=== PATIENT | male | born 1955 | race Caucasian/White ===

== ENCOUNTER 2021-09-06 15:44 | Emergency (ER) | payer OTHER ==
[2021-09-06] MEDS ORDERED: Rocephin 500 MG INJ IM ONE (16:38)
--- NOTE | 2021-09-06 16:40 | ERPHSYRPT ---
- History of Present Illness Time Seen by Provider: 09/06/21 16:15 Source: patient Exam Limitations: no limitations Patient Subjective Stated Complaint: LEFT FOOT/TOE PAIN Triage Nursing Assessment: PT AMBULATED TO ROOM, ALERT AND ORIENTED X 3, PT HAS A SMALL SORE WHICH HE SCRATCHED A COUPLE WEEKS AGO AND NOW IT IS CAUSING PAIN, SOME REDNESS NOTED TO FOOT, RED AND HOT TO THE TOUCH. Physician History: Patient is a 66-year-old male [place] normally receives his care at the [facility] presents to our ED for evaluation of a foot infection. Patient states his left third digit had a sore on the dorsal aspect which he picked. Patient states over the course of 2 weeks he has noticed swelling and redness and now he production at this area. Minimal pain. No fever. The area of redness is just around the base of the toe. There is no trauma. Patient has no bony tenderness. Patient is ambulatory with a normal gait. Patient voices no other complaints or concerns at this time. Timing/Duration: week(s) (2 weeks ago) Severity: moderate Modifying Factors: Improves With: nothing Associated Symptoms: denies symptoms Allergies/Adverse Reactions: No Known Drug Allergies Allergy (Unverified 09/06/21 16:13) Home Medications: Gabapentin 100 mg [Neurontin 100 MG] 100 mg PO HS 09/06/21 [History] Hx Tetanus, Diphtheria Vaccination/Date Given: Yes Hx Influenza Vaccination/Date Given: Yes Hx Pneumococcal Vaccination/Date Given: Yes Immunizations Up to Date: Yes Travel Risk - International Travel Have you traveled outside of the country in past 3 weeks: No - Coronavirus Screening Are you exhibiting any of the following symptoms?: No Close contact with a COVID-19 positive Pt in past 14-21 Days: No - Vaccine Status Have you recieved a Covid-19 vaccination: Yes [employer]: Unknown - Vaccination Dates Dates if Unknown: UNKNOWN - Review of Systems Constitutional: No Symptoms, No Fever, No Chills Eyes: No Symptoms Ears, Nose, & Throat: No Symptoms Respiratory: No Symptoms, No Cough, No Dyspnea Cardiac: No Symptoms, No Chest Pain, No Edema, No Syncope Abdominal/Gastrointestinal: No Symptoms, No Abdominal Pain, No Nausea, No Vomiting, No Diarrhea Genitourinary Symptoms: No Symptoms, No Dysuria Musculoskeletal: No Symptoms, No Back Pain, No Neck Pain Skin: No Symptoms, No Rash Neurological: No Symptoms, No Dizziness, No Focal Weakness, No Sensory Changes Psychological: No Symptoms Endocrine: No Symptoms Hematologic/Lymphatic: No Symptoms Immunological/Allergic: No Symptoms All Other Systems: Reviewed and Negative - Past Medical History Neurological History: Seizures ENT History: No Pertinent History Cardiac History: Hypertension Respiratory History: No Pertinent History Endocrine Medical History: No Pertinent History Musculoskeletal History: Fractures GI Medical History: Cirrhosis History: No Pertinent History Psycho-Social History: Depression Male Reproductive Disorders: No Pertinent History - Past Surgical History Past Surgical History: No - Social History Smoking Status: Current every day smoker How long have you smoked: 50 YEARS Exposure to second hand smoke: No Drug Use: none - Nursing Vital Signs Nursing Vital Signs: Initial Vital Signs Temperature 98.9 F 09/06/21 16:03 Pulse Rate 94 H 09/06/21 16:03 Respiratory Rate 20 09/06/21 16:03 Blood Pressure 165/106 09/06/21 16:03 O2 Sat by Pulse Oximetry 95 09/06/21 16:03 Pain Scale Pain Intensity 6 - Physical Exam General Appearance: no apparent distress, alert Eye Exam: PERRL/EOMI, eyes nml inspection Ears, Nose, Throat Exam: normal ENT inspection, TMs normal, pharynx normal, moist mucous membranes Neck Exam: normal inspection, non-tender, supple, full range of motion Respiratory Exam: normal breath sounds, lungs clear, airway intact, No respiratory distress Cardiovascular Exam: regular rate/rhythm, normal heart sounds, normal peripheral pulses Gastrointestinal/Abdomen Exam: soft, normal bowel sounds, No tenderness, No mass Back Exam: normal inspection, normal range of motion, No CVA tenderness, No vertebral tenderness Extremity Exam: normal inspection, normal range of motion, pelvis stable, tenderness (Slight tenderness to the area of involvement. No crepitation or obvious swelling.), other (Third digit left foot has a area of cellulitis measuring 1 cm. No lymphangitis. No lymphadenopathy. No fever. No open or draining lesions extremities neurovascular intact distally. Compartments are soft. Cap refill less than 2 seconds.) Neurologic Exam: alert, oriented x 3, cooperative, normal mood/affect, nml cerebellar function, nml station & gait, sensation nml, No motor deficits Skin Exam: normal color, warm, dry, No rash Lymphatic Exam: No adenopathy SpO2 Interpretation: normal SpO2: 93 O2 Delivery: Room Air - Course Nursing assessment & vital signs reviewed: Yes Ordered Tests: Medication Summary Discontinued Medications Generic Name Dose Route Start Last Admin Trade Name Mino PRN Reason Stop Dose Admin Ceftriaxone Sodium 1,000 mg 09/06/21 16:38 Ceftriaxone Sodium 500 Mg Vial IM 09/06/21 16:39 STAT ONE - Progress Progress: improved Progress Note: 66-year-old male nondiabetic with a new onset cellulitis at the dorsal aspect of the base of the left third digit. The cellulitis area was demarcated using a surgical marker. Patient received a IM dose of Rocephin in our ED. A prescription for Bactrim was forwarded to patient's pharmacy. 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 Patient agrees to follow-up with his primary care doctor within 48 hours for evaluation. Patient voiced no other complaints concerns at this time. Portions of this note were created with voice recognition technology. There may be grammatical, spelling, punctuation or sound alike errors 09/06/21 16:46 Counseled pt/family regarding: diagnosis, need for follow-up - Departure Departure Disposition: Home Clinical Impression: Cellulitis of foot Condition: Stable Critical Care Time: No Additional Instructions: Discharge/Care Plan CÉSAR BROWN was seen on 09/06/21 in the Emergency Room. The patient was counseled regarding Diagnosis,Lab results, Imaging studies, need for follow up and when to return to the Emergency Room. Prescriptions given: Discharge Note I have spoken with the patient and/or caregivers. I have explained the patient's condition, diagnosis and treatment plan based on the information available to me at this time. I have answered the patient's and/or caregiver's questions and addressed any concerns. The patient and/or caregivers have as good understanding of the patient's diagnosis, condition and treatment plan as can be expected at this point. The vital signs have been stable. The patient's condition is stable and appropriate for discharge from the emergency department. The patient will pursue further outpatient evaluation with the primary care physician or other designated or consulting physician as outlined in the discharge instructions. The patient and/or caregivers are agreeable to this plan of care and follow-up instructions have been explained in detail. The patient and/or caregivers have received these instruction. The patient/and or caregivers are aware that any significant change in condition or worsening of symptoms should prompt an immediate return to this or the closest emergency department or call 911. Prescriptions: Smz/Tmp Ds Tablet [Bactrim Ds Tablet] 1 udtab PO BID #14 tablet
[2021-09-06] MEDS ORDERED: Rocephin 1000 MG INJ ONE (16:41)
[2021-09-06] MEDS ORDERED: XYLOCAINE 1% HCL 20 ML MDV ONE (16:42)
[2021-09-06] MEDS ORDERED: Rocephin 1000 MG INJ IM ONE (17:00)
[2021-09-06 17:08] VITALS: BP 150/93; PULSE 67; O2SAT 92
== END 2021-09-06 17:05 | disposition home or self-care (01) ==
LOC: ED 15:44
DX: L03.032 Cellulitis of left toe (principal); I10 Essential (primary) hypertension; Z72.0 Tobacco use
CPT/HCPCS: 96372; 99283; J0696

== ENCOUNTER 2023-01-14 08:22 | Day surgery (SDC) | payer OTHER ==
--- NOTE | 2023-01-14 06:56 | HP ---
DATE OF SURGERY: 01/14/2023 HISTORY OF PRESENT ILLNESS: The patient is a 67-year-old history of cirrhosis followed at . He had prior dilatation and now more dysphasia mid to lower esophagus. He is in need of EGD possible dilatation. PAST MEDICAL HISTORY: Asthma, cirrhosis, depression, hyperlipidemia, hypertension, seizure disorder. PAST SURGICAL HISTORY: He denied prior surgery. He had endoscopy and dilatation in the past. MEDICATIONS: Atorvastatin, gabapentin. ALLERGIES: NKDA. FAMILY HISTORY: Negative in regards to this problem. SOCIAL HISTORY: Smoker. No current alcohol abuse. REVIEW OF SYSTEMS: Fourteen systems reviewed. No chest pain or palpitations. Other systems negative or noncontributory as above and per preadmission questionnaire. PHYSICAL EXAMINATION: Height 5'3". BMI 21. GENERAL: No acute distress. HEENT: Sclerae trace icterus. EOMI. Oral mucous membranes moist. NECK: No JVD. CHEST: Equal excursion, nonlabored breathing. CVS: Regular rate and rhythm. ABDOMEN: Soft. EXTREMITIES: No significant edema. NEURO: Alert, oriented, moving extremities symmetrically. PSYCH: Appropriate mood and affect. SKIN: Dry. IMPRESSION: Dysphagia. He is in need of EGD possible dilatation. Risk of bleeding or infection, perforation, possible open procedure, possible need for transfer for stent placement, risk of bleeding or other procedure requiring transfer, possible no improvement in swallowing, risk of mortality but not limited to. Will proceed with EGD possible biopsy possible dilatation as an outpatient. Continue medication for cirrhosis, hypertension, lipids, multiple medical problems as mentioned above. Will proceed with EGD possible biopsy possible dilatation as an outpatient.
[2023-01-14] MEDS ORDERED: Lactated Ringers 1,000 ML IV ONE (08:57)
[2023-01-14] MEDS ORDERED: Lactated Ringers 1,000 ML IV SCH (09:00)
[2023-01-14 09:25] VITALS: RESP 16
[2023-01-14 09:29] LABS: Hematocrit 52.2 % (42-50); Hemoglobin 16.8 g/dL (12.5-18.0); Mean Cell Volume 91.3 fL (78-100); Mean Corpuscular Hemoglobin 29.4 pg (26-32); Mean Corpuscular Hgb Concent. 32.2 g/dL (32-36); Mean Platelet Volume 11.7 fL (7.5-11.0); Platelet Count 115 x10^3/uL (150-450); Red Blood Count 5.72 x10^6/uL (4.1-5.6); Red Cell Distribution Width 12.9 % (11.5-14.0); White Blood Count 6.2 x10^3/uL (4.0-10.5)
[2023-01-14 09:57] LABS: ALBUMIN 4.2 g/dL (3.5-5.0); ALKALINE PHOSPHATASE 77 U/L (38-126); BLOOD UREA NITROGEN 21 mg/dL (9-20); CHLORIDE 103 mmol/L (98-107); Calcium 9.3 mg/dL (8.4-10.2); Carbon Dioxide 21 mmol/L (22-30); Creatinine 1 0.95 mg/dL (0.66-1.25); EST GLOMERULAR FILTRATION RATE > 60.0 ML/MIN; Glucose 80 mg/dL (74-106); Potassium 4.4 mmol/L (3.5-5.1); SGOT/AST 38 U/L (17-59); SGPT/ALT 24 U/L (0-50); SODIUM 137 mmol/L (137-145); Total Protein 8.1 g/dL (6.3-8.2)
[2023-01-14] MEDS ORDERED: Versed 2 MG/2 ML Injection ONE (11:03)
[2023-01-14] MEDS ORDERED: Xylocaine-Mpf 2% 5 Ml Vial ONE (11:03)
[2023-01-14] MEDS ORDERED: DIPRIVAN 200 MG/20 ML IV ONE (11:03)
[2023-01-14 12:33] VITALS: BP 125/83; PULSE 97; TEMP 97.4; O2SAT 96
--- NOTE | 2023-01-15 09:22 | OP ---
SURGERY DATE/TIME: 01/14/2023 1111 PREOPERATIVE DIAGNOSES: 1) Need for screening colonoscopy. 2) History of dysphagia, need for upper endoscopy. POSTOPERATIVE DIAGNOSES: 1) Erosive duodenitis. 2) Erosive gastritis. 3) Distal esophageal narrowing and spasm without evidence of any mass. 4) Colon polyps. 5) Fair bowel prep. 6) ASA Class II. 7) Withdrawal of colonoscopy approximately 12 minutes. PROCEDURES: 1) EGD with cold biopsy of antrum for Helicobacter pylori. 2) Distal esophageal balloon dilatation (size 20 balloon). 3) Colonoscopy to cecum with hot biopsy of hyperplastic lesion x2. 4) Hot biopsy polypectomy early polyp versus hyperplastic lesion rectosigmoid x1. SURGEON: Dr. Geraldo Ramon. ANESTHESIA: MAC. ESTIMATED BLOOD LOSS: Minimal. INDICATIONS: As noted above. Risks and benefits explained in detail and not limited to and consent obtained. DESCRIPTION OF PROCEDURE AND FINDINGS: The patient is taken to the operating room. MAC anesthesia introduced. After official time out and no disagreement with planned procedure, bite block positioned. Video gastroscope easily passed down the proximal esophagus. In the distal esophagus, there is no evidence of mass but there was some tertiary contractions of esophagus as well as some esophageal spasm and narrowing where he was having his symptoms here. It was felt this warranted a trial of dilatation. The scope was passed back down through to the third portion of the duodenum. In the proximal duodenum in the second and third portion, he had some superficial erosions but he did have anything deep enough to call an ulcer at this point but he did have some erosive duodenitis. Back in the stomach, he had some erosive gastritis as well as petechial hemorrhages. No evidence of any large ulcer. Cold biopsy taken for Helicobacter pylori. On retroflex, he had slight weakness at the hiatus but no evidence of any large hiatal hernia. The scope is pulled back. Z-line is fairly crisp. No signs of any masses or erosions. Again, he did have a distal narrowing that warranted a trial of dilatation. Therefore the scope passed back down the stomach. A 20 balloon catheter carefully inserted to oropharynx to the stomach, pulled back up to the distal esophagus narrowed area and carefully inflated first stage for about 30 seconds, second stage 30 seconds, final stage approximately 2 minutes size 20 balloon dilator. The balloon was then released and withdrawn. The area was re-inspected and it was more widely patent. There were no signs of any full thickness issues or injury secondary to dilatation. The scope is withdrawn. Attention is then turned to colonoscopy. Digital rectal exam did not reveal any rectal masses. Video colonoscope inserted and passed up the slightly tortuous sigmoid, descending, transverse, ascending colon. With external pressure the scope passed down to the cecum. Prep overall was fair with a little bit of liquidy, semisolid stool suctioned and irrigated as clear as possible. Appendiceal orifice and valve well visualized and photo documented. The scope is then carefully withdrawn over the next 12 minutes suction irrigating liquid stool as well as possible. No signs of any large polyps, masses or obstructing lesions. There were two small early polyps versus hyperplastic lesion in the sigmoid colon removed with hot biopsy forceps hot biopsy polypectomy. Good hemostasis noted. One in the rectosigmoid colon removed with hot biopsy polypectomy. Otherwise no signs of any large polyps, masses or obstructing lesions. The scope is withdrawn. The patient tolerated the procedure well. Findings discussed with the family out in the waiting area. He will do room temperature liquids for four hours and advance diet as tolerated. Avoid aspirin, NSAID or thinners. I will see him back in the office in a week.
== END 2023-01-14 12:38 | disposition home or self-care (01) ==
LOC: SDC 08:22
PROVIDERS: ATTEND Surgery
DX: Z12.11 Encounter for screening for malignant neoplasm of colon (principal); R13.10 Dysphagia, unspecified; K29.80 Duodenitis without bleeding; K29.70 Gastritis, unspecified, without bleeding; K22.2 Esophageal obstruction; K63.5 Polyp of colon
CPT/HCPCS: 36415; 80053; 85027; 93005; C1726; J2250; J2704